=== PATIENT | male | born 1960 | race Caucasian/White ===

== ENCOUNTER 2017-12-04 12:57 | Emergency (ER) | payer MEDICARE, MEDICAID ==
[~2017-12-04] VITALS: Ht 177.8 cm; Wt 117.9 kg
[2017-12-04] MEDS ORDERED: LISINOPRIL20 MG PO (13:08)
[2017-12-04] MEDS ORDERED: PRAVACHOL40 MG PO (13:09)
[2017-12-04] MEDS ORDERED: METFORMIN HCL1000 MG PO (13:09)
[2017-12-04] MEDS ORDERED: LANTUS100 UNITS/ (13:10)
[2017-12-04] MEDS ORDERED: METHYLPREDNISOLO4 M1 PO (14:06)
[2017-12-04] MEDS ORDERED: BACLOFEN10 MG PO (14:06)
[2017-12-04] MEDS ORDERED: KETOROLAC TROME10 MG PO (14:06)
== END 2017-12-04 14:14 | disposition home or self-care (01) ==
LOC: ED 12:57
DX: M25.511 Pain in right shoulder (principal); G89.29 Other chronic pain; M62.838 Other muscle spasm; E11.40 Type 2 diabetes mellitus with diabetic neuropathy, unspecified; E78.00 Pure hypercholesterolemia, unspecified; I25.2 Old myocardial infarction; F17.200 Nicotine dependence, unspecified, uncomplicated; Z88.0 Allergy status to penicillin; Z91.010 Allergy to peanuts; Z79.899 Other long term (current) drug therapy; Z79.84 Long term (current) use of oral hypoglycemic drugs; Z79.4 Long term (current) use of insulin
CPT/HCPCS: 73030; 96372; 99283; J1885